=== PATIENT | female | born 1965 | race Hispanic/Latino ===

== ENCOUNTER 2018-01-06 10:17 | Emergency (ER) | payer BC ==
[2018-01-06 10:24] VITALS: BMI 30.2
[2018-01-06 10:37] VITALS: RESP 18
[2018-01-06] MEDS ORDERED: Sodium Chloride 0.9% 1,000 ML IV STA (10:54)
[2018-01-06] MEDS ORDERED: Iohexol 350 MG/100 ML VIAL ONE (11:08)
[2018-01-06 11:40] LABS: BASO # 0.04 K/mm3 (0.0-2.0); BASO % 0.8 % (0.0-3.0); EOS # 0.2 (0.0-0.7); EOS % 3.8 % (1.5-5.0); GRAN # 2.09 (1.4-6.5); GRAN % 44.3 % (50.0-68.0); HEMOGLOBIN 13.8 g/dL (12.0-16.0); LYMPH # 1.7 (1.2-3.4); LYMPH % 36.9 % (22.0-35.0); MEAN CELL VOLUME 84.6 fl (80.0-105.0); MEAN CORPUSCULAR HEMOGLOBIN 29.1 pg (25.0-35.0); MEAN CORPUSCULAR HGB CONC 34.4 g/dl (31.0-37.0); MEAN PLATELET VOLUME 9.7 fl (7.0-11.0); MONO # 0.7 (0.1-0.6); MONO % 14.2 % (1.0-6.0); RBC 4.74 10^6/uL (3.5-6.1); URINE BILIRUBIN NEGATIVE (NEGATIVE); URINE BLOOD NEGATIVE (NEGATIVE); URINE GLUCOSE (UA) NEGATIVE (NEGATIVE); URINE LEUKOCYTE ESTERASE TRACE Leu/uL (NEGATIVE); URINE PROTEIN NEGATIVE mg/dL (<30 mg/dL); URINE UROBILINOGEN 0.2 E.U./dL (<1 E.U./dL); WHITE BLOOD COUNT 4.7 10^3/ul (4.5-11.0)
[2018-01-06 11:44] LABS: ALB/GLOB RATIO 1.5 (1.1-1.8); ALBUMIN 4.5 g/dL (3.0-4.8); ALT/SGPT 21 U/L (7-56); AST/SGOT 27 U/L (14-36); BLOOD UREA NITROGEN 11 mg/dL (7-21); CALCIUM 9.3 mg/dL (8.4-10.5); GFR AFRICAN-AMERICAN > 60; GFR NON-AFRICAN AMERICAN > 60; LIPASE 259 U/L (23-300); URINE APPEARANCE CLEAR (CLEAR); URINE COLOR STRAW (YELLOW)
--- NOTE | 2018-01-06 12:13 | ED PDOC ---
Arrival/HPI - General Chief Complaint: Abdominal Pain Time Seen by Provider: 01/06/18 10:44 Historian: Patient - History of Present Illness Narrative History of Present Illness (Text): 01/06/18 13:21 52-year-old female presents today with left-sided abdominal pain. Patient states she's been having a fullness sensation a left side of the abdomen for the past 3 weeks. Patient states she was seen by her primary care physician and placed on Cipro patient states she was then seen by a GI specialist 5 days ago and was placed on Cipro and Flagyl. Patient states today the pain suddenly worsened. She denies fevers or chills. No chest pain or shortness of breath. She is complaining of nausea no vomiting or diarrhea. Patient states she has pain that radiates from the left side of the abdomen to the left flank. She denies dysuria or urinary frequency. No other complaints. Time/Duration: > week Symptom Onset: Gradual Symptom Course: Worsening Quality: Pressure, Cramping Severity Level: 7 Past Medical History - Provider Review Nursing Documentation Reviewed: Yes - Travel History Have you recently traveled outside [place] w/in the past 3 mons?: No - Infectious Disease Hx of Infectious Diseases: None - Gastrointestinal Hx Gastroesophageal Reflux: Yes - Psychiatric Hx Anxiety: Yes Hx Substance Use: No - Surgical History Hx Tonsillectomy: Yes Hx Tubal Ligation: Yes Other/Comment: cyst removal - Anesthesia Hx Anesthesia: Yes Hx Anesthesia Reactions: No Hx Malignant Hyperthermia: No Family/Social History - Physician Review Nursing Documentation Reviewed: Yes Family/Social History: Unknown Family HX Smoking Status: Never Smoked Hx Alcohol Use: Yes Frequency of alcohol use: Socially Hx Substance Use: No Allergies/Home Meds Allergies/Adverse Reactions: Allergies latex Allergy (Verified 01/06/18 10:24) ITCHING Home Medications: Home Meds Medication Instructions Recorded Confirmed Alprazolam [Xanax] 1 tab PO PRN PRN 01/06/18 01/06/18 Omeprazole Magnesium [Prilosec Otc] 40 mg PO DAILY 01/06/18 01/06/18 Review of Systems - Review of Systems Constitutional: absent: Fatigue, Fevers Respiratory: absent: SOB, Cough Cardiovascular: absent: Chest Pain, Palpitations Gastrointestinal: Abdominal Pain. absent: Constipation, Diarrhea, Nausea, Vomiting Genitourinary Female: absent: Dysuria, Frequency, Hematuria Musculoskeletal: Back Pain. absent: Arthralgias, Neck Pain Skin: absent: Rash, Pruritis Neurological: absent: Headache, Dizziness Psychiatric: absent: Anxiety, Depression Physical Exam Vital Signs Reviewed: Yes Vital Signs Temp Pulse Resp BP Pulse Ox 01/06/18 10:18 98.0 F 68 18 175/83 H 100 Temperature: Afebrile Blood Pressure: Hypertensive Pulse: Regular Respiratory Rate: Normal Appearance: Positive for: Well-Appearing, Non-Toxic, Comfortable Pain Distress: None Mental Status: Positive for: Alert and Oriented X 3 - Systems Exam Head: Present: Atraumatic Mouth: Present: Moist Mucous Membranes Neck: Present: Normal Range of Motion Respiratory/Chest: Present: Clear to Auscultation, Good Air Exchange. No: Respiratory Distress, Accessory Muscle Use Cardiovascular: Present: Regular Rate and Rhythm, Normal S1, S2. No: Murmurs, Muffled Abdomen: Present: Tenderness (+ left upper and lower abdominal tenderness), Normal Bowel Sounds. No: Distention, Peritoneal Signs, Rebound, Guarding Back: Present: Normal Inspection. No: CVA Tenderness, Midline Tenderness, Paraspinal Tenderness Upper Extremity: Present: Normal ROM Lower Extremity: Present: Normal ROM Neurological: Present: GCS=15, Speech Normal Skin: Present: Warm, Dry, Normal Color. No: Rashes Psychiatric: Present: Alert, Oriented x 3 Medical Decision Making ED Course and Treatment: 01/06/18 13:24 Patient is nontoxic well appearing with stable vital signs presenting with left sided abdominal pain CBC wnl CMP wnl Lipase wnl Urinalysis +trace leukocytes CAT scan:FINDINGS: LOWER THORAX: The lung bases are clear. No infiltrate effusion or basilar pneumothorax. Heart size normal. No significant pericardial effusion. Tiny hiatal hernia. LIVER: Liver exhibits normal size measuring approximately 14 cm in CC dimension. Mild diffuse fatty hepatic infiltration. No obvious hepatic mass collection or calcification. GALLBLADDER AND BILE DUCTS: Gallbladder physiologically distended. No evidence of intraluminal gallbladder calculi. PANCREAS: Pancreas appears slightly atrophic and fatty replaced. SPLEEN: Spleen is upper limits of normal in size. ADRENALS: No adrenal lesions. KIDNEYS AND URETERS: Kidneys demonstrate symmetric nephrograms. No evidence of nephrolithiasis or hydronephrosis. There is a small approximately 2.8 mm cyst lateral cortex mid pole right kidney BLADDER: Urinary bladder is incompletely distended which presumably in part accounts for thick-walled appearance however there is some minimal asymmetry of the wall thickness and slightly more prominent along the superior anterior border. Possibility of intrinsic/invasive wall lesion not excluded. Follow-up urologic consultation may be prudent. REPRODUCTIVE: Prominent appearing cervix. Consider followup pelvic ultrasound APPENDIX: Normal-appearing appendix BOWEL: Evaluation of the bowel is somewhat limited due to the lack of oral contrast material. The stomach is collapsed. Visualized loops of small bowel exhibit normal contour and caliber. No evidence of acute mechanical small bowel obstruction. Stool and air seen throughout the large bowel. No evidence of mural wall thickening. PERITONEUM: Unremarkable. No fluid collection. No free air. Small fat containing umbilical hernia. LYMPH NODES: Unremarkable. No enlarged lymph nodes. VASCULATURE: Unremarkable. No aortic aneurysm. BONES: Minor multilevel degenerative spondylosis of the lower thoracic and lumbar spine. OTHER FINDINGS: None. IMPRESSION: No evidence of nephrolithiasis or hydronephrosis. Kumar Bulky appearing cervix. Recommend followup pelvic ultrasound. Urinary bladder exhibits mild asymmetric wall thickening nonspecific. Correlation urinalysis however follow-up urologic consultation may be prudent for further evaluation to exclude intrinsic/ invasive wall lesion. Spleen is upper limits of normal in size. Mild fatty hepatic infiltration. 01/06/18 16:29 pt was seen and evaluated by dr. warner at [facility]; he reviewed CT results; will d/c patient home and change cipro to augmentin. he advised patient to continue flagyl. Discussed all results with patient in depth advised patient to d/c cipro and start augmentin but continue flagyl. pt was advised to return IMMEDIATELY if symptoms worsen,persist or if new symptoms develop. advised patient of need for f/u with [facility] regarding prominent cervix. advised f/u with urologist for asymmetric thickening of the bladder. Patient states her father had a history of bladder cancer. I advised the patient to follow-up with Dr. Elmore. pt with leukocytes in urine; pt has been on cipro; abx is changing to augmentin. will follow urine culture . Patient verbalizes understanding of discharge instructions and need for immediate followup. all aspects of this case were discussed the attending of record. Impression: Abdominal pain Motrin every 6 hours as needed for pain STOP cipro. Start augmentin twice daily x 10 days Continue flagyl as prescribed Increase fluids Follow up with primary care physician within the next 2 days Follow up with the GI doctor within the next 2 days. Follow up with the urologist Return immediately if symptoms worsen persist or if new symptoms develop: High fevers, increasing pain, vomiting, diarrhea or any other concerning symptoms develop Reassessment Condition: Re-examined, Improved - Lab Interpretations Lab Results: 01/06/18 11:20 01/06/18 11:20 Lab Results 01/06/18 11:20: WBC 4.7, RBC 4.74, Hgb 13.8, Hct 40.1, MCV 84.6, MCH 29.1, MCHC 34.4, RDW 13.0, Plt Count 243, MPV 9.7, Gran % 44.3 L, Lymph % (Auto) 36.9 H, [place] % (Auto) 14.2 H, Eos % (Auto) 3.8, Baso % (Auto) 0.8, Gran # 2.09, Lymph # (Auto) 1.7, [place] # (Auto) 0.7 H, Eos # (Auto) 0.2, Baso # (Auto) 0.04 01/06/18 11:20: Sodium 139, Potassium 4.0, Chloride 102, Carbon Dioxide 27, Anion Gap 15, BUN 11, Creatinine 0.8, Est GFR ( Amer) > 60, Est GFR (Non- Af Amer) > 60, Random Glucose 92, Calcium 9.3, Total Bilirubin 0.6, AST 27, ALT 21, Alkaline Phosphatase 44, Total Protein 7.4, Albumin 4.5, Globulin 3.0, Albumin/Globulin Ratio 1.5, Lipase 259 01/06/18 11:20: Urine Color Straw, Urine Appearance Clear, Urine pH 6.0, Ur Specific [place] <= 1.005, Urine Protein Negative, Urine Glucose (UA) Negative, Urine Ketones Negative, Urine Blood Negative, Urine Nitrate Negative, Urine Bilirubin Negative, Urine Urobilinogen 0.2, Ur Leukocyte Esterase Trace H, Urine RBC 0 - 2, Urine WBC 2 - 5, Ur Epithelial Cells 4 - 5, Urine Bacteria Few - RAD Interpretation Radiology Orders: 01/06/18 10:54 ABD & PELVIS IV CONTRAST ONLY [CT] Stat - Medication Orders Current Medication Orders: Discontinued Medications Sodium Chloride (Sodium Chloride 0.9%) 1,000 mls @ 999 mls/hr IV .Q1H1M STA Stop: 01/06/18 11:54 Last Admin: 01/06/18 11:05 Dose: 999 mls/hr eMAR Start Stop Document 01/06/18 11:05 EQ (Rec: 01/06/18 11:05 EQ [id number]) Intravenous Solution Start Date 01/06/18 Start Time 11:05 Ketorolac Tromethamine (Toradol) 30 mg IVP STAT STA Stop: 01/06/18 10:55 Last Admin: 01/06/18 11:06 Dose: 30 mg MAR Pain Assessment Document 01/06/18 11:06 EQ (Rec: 01/06/18 11:06 EQ [id number]) Pain Reassessment Is this a pain reassessment? No Sleep Is patient sleeping during reassessment? No IVP Administration Document 01/06/18 11:06 EQ (Rec: 01/06/18 11:06 EQ [id number]) Charges for Administration # of IVP Administrations 1 Disposition/Present on Arrival - Present on Arrival Any Indicators Present on Arrival: No History of DVT/PE: No History of Uncontrolled Diabetes: No Urinary Catheter: No History of Decub. Ulcer: No History Surgical Site Infection Following: None - Disposition Have Diagnosis and Disposition been Completed?: Yes Diagnosis: Abdominal pain Disposition: HOME/ ROUTINE Disposition Time: 16:40 Patient Plan: Discharge Patient Problems: Current Active Problems Problem Status Onset Abdominal pain Acute Condition: GOOD Discharge Instructions (ExitCare): Acute Abdomen (Belly Pain) Additional Instructions: Motrin every 6 hours as needed for pain STOP cipro. Start augmentin twice daily x 10 days Continue flagyl as prescribed Increase fluids Follow up with primary care physician within the next 2 days Follow up with the GI doctor within the next 2 days. Follow up with the urologist Return immediately if symptoms worsen persist or if new symptoms develop: High fevers, increasing pain, vomiting, diarrhea or any other concerning symptoms develop Prescriptions: Amoxicillin/Clavulanate [Augmentin 875 MG-125 MG] 1 tab PO BID #20 tab Ibuprofen [Motrin] 600 mg PO Q6H PRN #20 tab PRN Reason: pain/fever reduction Referrals: Domenica Morris MD [Staff Provider] - Follow up with primary Tyrese Warner MD [Medical Doctor] - Follow up with primary Jacobo Donis MD [Family Provider] - Follow up with primary Brendon Dewitt MD [Staff Provider] - Follow up with primary Meliton Elmore MD [Staff Provider] - Follow up with primary Forms: [employer] (Faroese), WORK NOTE
[2018-01-06 12:31] LABS: URINE BACTERIA FEW (NEG); URINE RBC 0 - 2 /hpf (0-2)
--- NOTE | 2018-01-06 14:19 | CT ---
PROCEDURE: CT scan abdomen pelvis 01/06/2018 HISTORY: Left-sided abdominal pain COMPARISON: No prior study available for comparison TECHNIQUE: Contiguous helical/transaxial images of the abdomen and pelvis following intravenous injection of approximately 100 cc Omnipaque 350 contrast material. Additional 2D sagittal and coronal reformats generated. This CT exam was performed using one or more of the following dose reduction techniques: Automated exposure control, adjustment of the mA and/or kV according to patient size, and/or use of iterative reconstruction technique. Radiation dose: Total exam DLP = 787.45 mGy-cm. FINDINGS: LOWER THORAX: The lung bases are clear. No infiltrate effusion or basilar pneumothorax. Heart size normal. No significant pericardial effusion. Tiny hiatal hernia. LIVER: Liver exhibits normal size measuring approximately 14 cm in CC dimension. Mild diffuse fatty hepatic infiltration. No obvious hepatic mass collection or calcification. GALLBLADDER AND BILE DUCTS: Gallbladder physiologically distended. No evidence of intraluminal gallbladder calculi. PANCREAS: Pancreas appears slightly atrophic and fatty replaced. SPLEEN: Spleen is upper limits of normal in size. ADRENALS: No adrenal lesions. KIDNEYS AND URETERS: Kidneys demonstrate symmetric nephrograms. No evidence of nephrolithiasis or hydronephrosis. There is a small approximately 2.8 mm cyst lateral cortex mid pole right kidney BLADDER: Urinary bladder is incompletely distended which presumably in part accounts for thick-walled appearance however there is some minimal asymmetry of the wall thickness and slightly more prominent along the superior anterior border. Possibility of intrinsic/invasive wall lesion not excluded. Follow-up urologic consultation may be prudent. REPRODUCTIVE: Prominent appearing cervix. Consider followup pelvic ultrasound APPENDIX: Normal-appearing appendix BOWEL: Evaluation of the bowel is somewhat limited due to the lack of oral contrast material. The stomach is collapsed. Visualized loops of small bowel exhibit normal contour and caliber. No evidence of acute mechanical small bowel obstruction. Stool and air seen throughout the large bowel. No evidence of mural wall thickening. PERITONEUM: Unremarkable. No fluid collection. No free air. Small fat containing umbilical hernia. LYMPH NODES: Unremarkable. No enlarged lymph nodes. VASCULATURE: Unremarkable. No aortic aneurysm. BONES: Minor multilevel degenerative spondylosis of the lower thoracic and lumbar spine. OTHER FINDINGS: None. IMPRESSION: No evidence of nephrolithiasis or hydronephrosis. Kumar Bulky appearing cervix. Recommend followup pelvic ultrasound. Urinary bladder exhibits mild asymmetric wall thickening nonspecific. Correlation urinalysis however follow-up urologic consultation may be prudent for further evaluation to exclude intrinsic/ invasive wall lesion. Spleen is upper limits of normal in size. Mild fatty hepatic infiltration.
[2018-01-06 17:09] VITALS: PULSE 64; TEMP 98.7; O2SAT 99
[2018-01-06 17:38] VITALS: BP 182/88
== END 2018-01-06 17:15 | disposition home or self-care (01) ==
LOC: ED 10:17
DX: R10.9 Unspecified abdominal pain (principal)
CPT/HCPCS: 74177; 80053; 81001; 83690; 85025; 87040; 87086; 96374; 99284; J1885; J7030; Q9967

== ENCOUNTER 2018-04-09 10:30 | Emergency (ER) | payer BC ==
[2018-04-09 10:30] VITALS: BMI 30.2
[2018-04-09 11:29] LABS: ALB/GLOB RATIO 1.3 (1.1-1.8); ALBUMIN 4.7 g/dL (3.0-4.8); ALT/SGPT 28 U/L (7-56); AMYLASE 77 U/L (35-125); AST/SGOT 34 U/L (14-36); BLOOD UREA NITROGEN 13 mg/dL (7-21); CALCIUM 9.3 mg/dL (8.4-10.5); GFR NON-AFRICAN AMERICAN > 60; LIPASE 154 U/L (23-300)
[2018-04-09 11:32] LABS: URINE BILIRUBIN NEGATIVE (NEGATIVE); URINE BLOOD LARGE (NEGATIVE); URINE GLUCOSE (UA) NEGATIVE (NEGATIVE); URINE LEUKOCYTE ESTERASE LARGE Leu/uL (NEGATIVE); URINE PROTEIN 100 mg/dL (<30 mg/dL); URINE UROBILINOGEN 0.2 E.U./dL (<1 E.U./dL)
[2018-04-09 11:33] LABS: BASO # 0.04 K/mm3 (0.0-2.0); BASO % 0.4 % (0.0-3.0); EOS # 0.3 (0.0-0.7); EOS % 3.4 % (1.5-5.0); GRAN # 6.46 (1.4-6.5); GRAN % 66.9 % (50.0-68.0); HEMOGLOBIN 13.8 g/dL (12.0-16.0); LYMPH # 1.7 (1.2-3.4); LYMPH % 17.5 % (22.0-35.0); MEAN CELL VOLUME 87.8 fl (80.0-105.0); MEAN CORPUSCULAR HEMOGLOBIN 29.6 pg (25.0-35.0); MEAN CORPUSCULAR HGB CONC 33.7 g/dl (31.0-37.0); MEAN PLATELET VOLUME 9.7 fl (7.0-11.0); MONO # 1.1 (0.1-0.6); MONO % 11.8 % (1.0-6.0); RBC 4.67 10^6/uL (3.5-6.1); RED CELL DISTRIBUTION WIDTH 13.3 % (11.5-14.5); WHITE BLOOD COUNT 9.7 10^3/ul (4.5-11.0)
[2018-04-09 11:37] LABS: INR 0.96; PARTIAL THROMBOPLASTIN TIME 27.4 Seconds (25.1-36.5)
[2018-04-09 11:39] LABS: TROPONIN I < 0.01 ng/mL
[2018-04-09 11:42] LABS: URINE APPEARANCE CLEAR (CLEAR); URINE COLOR YELLOW (YELLOW)
[2018-04-09] MEDS ORDERED: cefTRIAXone 1 gm 1 GM/100 ML BAG IVPB STA (12:02)
[2018-04-09 12:26] LABS: URINE BACTERIA MANY (NEG); URINE RBC TNTC /hpf (0-2); URINE WBC TNTC /hpf (0-6)
[2018-04-09 12:27] LABS: URINE AMORPHOUS SEDIMENT FEW
--- NOTE | 2018-04-09 12:37 | ED PDOC ---
Arrival/HPI - General Historian: Patient - History of Present Illness Narrative History of Present Illness (Text): 04/09/18 12:34 53yo female with history of anxiety and GERD who present with complaint of substernal chest heaviness, odynophagia, hematuria and dysuria x 2days. States the symptoms was like her GERD symptom, so she was taking Prilosec, that usually resolve her symptoms but it didn't. she denies fever, chills, SOB, diaphoresis, calf pain, LE edema, nausea, vomiting, dizziness, recent travel/surgery, abdominal pain, any other complaint. <Demetrius Quintanilla A - Last Filed: 04/09/18 15:39> <Luisito Kelley - Last Filed: 04/14/18 18:47> - General Chief Complaint: Chest Pain Time Seen by Provider: 04/09/18 10:39 Past Medical History - Provider Review Nursing Documentation Reviewed: Yes - Infectious Disease Hx of Infectious Diseases: None - Cardiac Hx Cardiac Disorders: Yes Hx Hypertension: Yes - Gastrointestinal Hx Gastroesophageal Reflux: Yes - Psychiatric Hx Anxiety: Yes Hx Substance Use: No - Surgical History Hx Tonsillectomy: Yes Hx Tubal Ligation: Yes Other/Comment: cyst removal - Anesthesia Hx Anesthesia: Yes Hx Anesthesia Reactions: No Hx Malignant Hyperthermia: No <Demetrius Quintanilla A - Last Filed: 04/09/18 15:39> Family/Social History - Physician Review Nursing Documentation Reviewed: Yes Family/Social History: Unknown Family HX Smoking Status: Former Smoker Hx Alcohol Use: Yes Frequency of alcohol use: Socially Hx Substance Use: No <Demetrius Quintanilla A - Last Filed: 04/09/18 15:39> Allergies/Home Meds <Demetrius Quintanilla A - Last Filed: 04/09/18 15:39> <Luisito Kelley - Last Filed: 04/14/18 18:47> Allergies/Adverse Reactions: Allergies latex Allergy (Verified 04/09/18 10:54) ITCHING Home Medications: Home Meds Medication Instructions Recorded Confirmed Alprazolam [Xanax] 1 tab PO PRN PRN 01/06/18 04/09/18 Omeprazole Magnesium [Prilosec Otc] 40 mg PO DAILY 01/06/18 04/09/18 Review of Systems - Physician Review All systems were reviewed & negative as marked: Yes - Review of Systems Constitutional: Normal Eyes: Normal ENT: Sore Throat Respiratory: Normal Cardiovascular: Chest Pain Gastrointestinal: Normal Genitourinary Female: Normal Musculoskeletal: Normal Skin: Normal Neurological: Normal Endocrine: Normal Hemo/Lymphatic: Normal Psychiatric: Normal <Diru,Happiness A - Last Filed: 04/09/18 15:39> Physical Exam Vital Signs Reviewed: Yes Vital Signs Temp Pulse Resp BP Pulse Ox 04/09/18 10:43 98.0 F 67 19 178/89 H 100 Temperature: Afebrile Blood Pressure: Normal Pulse: Regular Respiratory Rate: Normal Appearance: Positive for: Well-Appearing, Non-Toxic, Comfortable Pain Distress: None Mental Status: Positive for: Alert and Oriented X 3 - Systems Exam Head: Present: Atraumatic, Normocephalic Pupils: Present: PERRL Extroacular Muscles: Present: EOMI Conjunctiva: Present: Normal Mouth: Present: Moist Mucous Membranes Pharnyx: Present: Normal. No: ERYTHEMA, EXUDATE, TONSILS ENLARGED, Peritonsilar Swelling, Uvular Deviation, Muffled/Hoarse Voice, Strider Neck: Present: Normal Range of Motion Respiratory/Chest: Present: Clear to Auscultation, Good Air Exchange. No: Respiratory Distress, Accessory Muscle Use, Wheezes, Decreased Breath Sounds, Retracting, Rhonchi Cardiovascular: Present: Regular Rate and Rhythm, Normal S1, S2. No: Murmurs Abdomen: No: Tenderness, Distention, Peritoneal Signs Back: Present: Normal Inspection Upper Extremity: Present: Normal Inspection. No: Cyanosis, Edema Lower Extremity: Present: Normal Inspection. No: Edema Neurological: Present: GCS=15, CN II-XII Intact, Speech Normal Skin: Present: Warm, Dry, Normal Color. No: Rashes Psychiatric: Present: Alert, Oriented x 3, Normal Insight, Normal Concentration <Diru,Happiness A - Last Filed: 04/09/18 15:39> Vital Signs Temp Pulse Resp BP Pulse Ox 04/09/18 15:25 98 F 78 18 159/90 H 98 04/09/18 15:18 76 18 173/92 H 99 04/09/18 10:43 98.0 F 67 19 178/89 H 100 <Luisito Kelley - Last Filed: 04/14/18 18:47> Medical Decision Making ED Course and Treatment: 04/09/18 15:41 53yo female present with complaint of chest heaviness, sore throat, hematuria and dysuria x 2days. Pt's symptom similar to her pervious GERD symptoms, but not relieved with Prilosec. 04/09/18 15:54 Differential includes GERD Vs ACS VS Pleuritic chest pain Labs Card iso EKG CXR UA ASA, Pepcid, 1L NS First and second CE was wnl. Pt's pain resolved in ED with pepcid. She have UTI. Rocephin was given in ED. All result was DW the pt. With exception of her age and gender, she have no cardiac risk . She was DC home to f/u with cardiology for outpt evaluation. - Lab Interpretations Lab Results: 04/09/18 10:40 04/09/18 10:40 Lab Results 04/09/18 10:40: Sodium 141, Potassium 4.3, Chloride 103, Carbon Dioxide 29, Anion Gap 13, BUN 13, Creatinine 0.8, Est GFR ( Amer) > 60, Est GFR (Non- Af Amer) > 60, Random Glucose 91, Calcium 9.3, Total Bilirubin 0.6, AST 34, ALT 28, Alkaline Phosphatase 68, Lactate Dehydrogenase 489, Total Creatine Kinase 65, Troponin I < 0.01, Total Protein 8.3, Albumin 4.7, Globulin 3.7, Albumin/Globulin Ratio 1.3, Amylase 77, Lipase 154 04/09/18 10:40: Urine Color Yellow, Urine Appearance Clear, Urine pH 6.0, Ur Specific [place] 1.025, Urine Protein 100 H, Urine Glucose (UA) Negative, Urine Ketones 15 H, Urine Blood Large H, Urine Nitrate Positive H, Urine Bilirubin Negative, Urine Urobilinogen 0.2, Ur Leukocyte Esterase Large H, Urine RBC Tntc, Urine WBC Tntc, Ur Epithelial Cells 6 - 8, Amorphous Sediment Few, Urine B acteria Many, Urine Other Uyeast 04/09/18 10:40: PT 11.0, INR 0.96, APTT 27.4 04/09/18 10:40: WBC 9.7 D, RBC 4.67, Hgb 13.8, Hct 41.0, MCV 87.8 D, MCH 29.6, MCHC 33.7, RDW 13.3, Plt Count 263, MPV 9.7, Gran % 66.9, Lymph % (Auto) 17.5 L, [place] % (Auto) 11.8 H, Eos % (Auto) 3.4, Baso % (Auto) 0.4, Gran # 6.46, Lymph # (Auto) 1.7, [place] # (Auto) 1.1 H, Eos # (Auto) 0.3, Baso # (Auto) 0.04 - Medication Orders Current Medication Orders: Discontinued Medications Famotidine (Pepcid) 20 mg IVP STAT STA Stop: 04/09/18 10:41 Last Admin: 04/09/18 11:05 Dose: 20 mg IVP Administration Document 04/09/18 11:05 [facility] (Rec: 04/09/18 11:05 [facility] [id number]) Charges for Administration # of IVP Administrations 1 Ceftriaxone Sodium (Rocephin 1 Gram Ivpb) 1 gm in 100 mls @ 200 mls/hr IVPB STAT STA; Protocol Stop: 04/09/18 12:31 <Demetrius Quintanilla - Last Filed: 04/09/18 15:39> - Lab Interpretations Microbiology Results: Microbiology Results 04/09/18 11:00 Urine,Clean Catch Urine Culture - Final No Growth (<1,000 CFU/ML) Lab Results: 04/09/18 10:40 04/09/18 10:40 Lab Results 04/09/18 14:00: Lactate Dehydrogenase 483, Total Creatine Kinase 55, Troponin I < 0.01 04/09/18 10:40: Sodium 141, Potassium 4.3, Chloride 103, Carbon Dioxide 29, Anion Gap 13, BUN 13, Creatinine 0.8, Est GFR ( Amer) > 60, Est GFR (Non- Af Amer) > 60, Random Glucose 91, Calcium 9.3, Total Bilirubin 0.6, AST 34, ALT 28, Alkaline Phosphatase 68, Lactate Dehydrogenase 489, Total Creatine Kinase 65, Troponin I < 0.01, Total Protein 8.3, Albumin 4.7, Globulin 3.7, Albumin/Globulin Ratio 1.3, Amylase 77, Lipase 154 04/09/18 10:40: Urine Color Yellow, Urine Appearance Clear, Urine pH 6.0, Ur Specific [place] 1.025, Urine Protein 100 H, Urine Glucose (UA) Negative, Urine Ketones 15 H, Urine Blood Large H, Urine Nitrate Positive H, Urine Bilirubin Ne gative, Urine Urobilinogen 0.2, Ur Leukocyte Esterase Large H, Urine RBC Tntc, Urine WBC Tntc, Ur Epithelial Cells 6 - 8, Amorphous Sediment Few, Urine Bacteria Many, Urine Other Uyeast 04/09/18 10:40: PT 11.0, INR 0.96, APTT 27.4 04/09/18 10:40: WBC 9.7 D, RBC 4.67, Hgb 13.8, Hct 41.0, MCV 87.8 D, MCH 29.6, MCHC 33.7, RDW 13.3, Plt Count 263, MPV 9.7, Gran % 66.9, Lymph % (Auto) 17.5 L, [place] % (Auto) 11.8 H, Eos % (Auto) 3.4, Baso % (Auto) 0.4, Gran # 6.46, Lymph # (Auto) 1.7, [place] # (Auto) 1.1 H, Eos # (Auto) 0.3, Baso # (Auto) 0.04 - Medication Orders Current Medication Orders: Discontinued Medications Aspirin (Aspirin) 325 mg PO STAT STA Stop: 04/09/18 14:47 Last Admin: 04/09/18 15:12 Dose: 325 mg Famotidine (Pepcid) 20 mg IVP STAT STA Stop: 04/09/18 10:41 Last Admin: 04/09/18 11:05 Dose: 20 mg IVP Administration Document 04/09/18 11:05 [facility] (Rec: 04/09/18 11:05 [facility] [id number]) Charges for Administration # of IVP Administrations 1 Ceftriaxone Sodium (Rocephin 1 Gram Ivpb) 1 gm in 100 mls @ 200 mls/hr IVPB STAT STA; Protocol Stop: 04/09/18 12:31 Last Admin: 04/09/18 12:45 Dose: 200 mls/hr eMAR Start Stop Document 04/09/18 12:45 [facility] (Rec: 04/09/18 12:46 [facility] [id number]) Intravenous Solution Start Date 04/09/18 Start Time 12:46 End Date 04/09/18 End time 13:16 Total Infusion Time 30 <Luisito Kelley - Last Filed: 04/14/18 18:47> - 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 <Luisito Kelley - Last Filed: 04/14/18 18:47> Disposition/Present on Arrival - Present on Arrival Any Indicators Present on Arrival: No History of DVT/PE: No History of Uncontrolled Diabetes: No Urinary Catheter: No History of Decub. Ulcer: No History Surgical Site Infection Following: None - Disposition Have Diagnosis and Disposition been Completed?: Yes Disposition Time: 15:00 Patient Plan: Discharge <Demetrius Quintanilla - Last Filed: 04/09/18 15:39> <Luisito Kelley - Last Filed: 04/14/18 18:47> - Disposition Diagnosis: Chest pain, UTI (urinary tract infection) Disposition: HOME/ ROUTINE Condition: STABLE Discharge Instructions (ExitCare): Urinary Tract Infections in Adults, Chest Pain (DC), Chest Pain (ED) Additional Instructions: Follow up with your Doctor/[employer]auty [employer] Instructor Drink plenty of fluid and take cranberry supplement Return to ED for any new or worsening symptoms Prescriptions: Cephalexin [cephalexin] 500 mg PO TID #21 cap Referrals: Kyrie Joseph MD [Staff Provider] - Follow up with primary Forms: [employer] ([place])
[2018-04-09 14:34] LABS: TROPONIN I < 0.01 ng/mL
[2018-04-09 15:19] VITALS: RESP 18
[2018-04-09 15:44] VITALS: BP 159/90; PULSE 78; TEMP 98; O2SAT 98
--- NOTE | 2018-04-09 17:52 | CARD ---
APPROVED REPORT Date of service: 04/09/2018 EKG Measurement Heart [id number] <Conclusion> Sinus rhythm with premature atrial complexes Otherwise normal ECG
== END 2018-04-09 15:30 | disposition home or self-care (01) ==
LOC: ED 10:30
DX: R07.9 Chest pain, unspecified (principal); N39.0 Urinary tract infection, site not specified; I10 Essential (primary) hypertension; K21.9 Gastro-esophageal reflux disease without esophagitis; F41.9 Anxiety disorder, unspecified; Z87.891 Personal history of nicotine dependence
CPT/HCPCS: 80053; 81001; 82150; 82550; 83615; 83690; 84484; 85025; 85610; 85730; 87086; 93005; 96365; 96375; 99284; J0696

== ENCOUNTER 2018-08-12 21:41 | Inpatient (IN) | payer BC ==
[2018-08-12 21:56] VITALS: BMI 31.1
[2018-08-12] MEDS ORDERED: TDAP Vaccine 0.5 mL Syr IM ONE (21:58)
[2018-08-12] MEDS ORDERED: Bacitracin 500 Units/gm Oint Foilpak UD TOP ONE (22:00)
--- NOTE | 2018-08-12 22:32 | ED PDOC ---
Arrival/HPI - General Chief Complaint: Trauma Time Seen by Provider: 08/12/18 21:42 Historian: Patient, Family - History of Present Illness Narrative History of Present Illness (Text): 08/12/18 22:36 María Elena Nunez is a 53 year old female, whose past medical history includes GERD and anxiety, who presents to the Emergency department brought in by EMS accompanied by son status post fall 30 minutes prior to arrival. Patient fell down approximately 10-12 stairs. Fall was unwitnessed, patient with unknown loss of consciousness. Patient was unable to ambulate after the fall. Patient states she was out drinking alcohol with friends tonight and came home to where her son lives and tripped, falling down the stairs. Patient complaining of left knee, mid-back pain, and headache. Patient also sustained a laceration to her post erior scalp. Patient is unable to recall her last TDAP. (+) ETOH on breath. Arrived to ER A&Ox3, moving all extremities. Patient denies any vision changes, dizziness, neck pain, bowel/bladder incontinence, saddle anesthesia, numbness/weakness/paresthesias, nausea, vomiting, chest pain, shortness of breath, or any other complaints. Time/Duration: 1/2 hour Symptom Onset: Gradual Symptom Course: Unchanged Context: Home Past Medical History - Provider Review Nursing Documentation Reviewed: Yes - Infectious Disease Hx of Infectious Diseases: None - Reproductive Menopause: Yes Currently : Unknown - Cardiac Hx Cardiac Disorders: Yes Hx Hypertension: Yes - Musculoskeletal/Rheumatological Hx Musculoskeletal Disorders: Yes Hx Falls: Yes - Gastrointestinal Hx Gastroesophageal Reflux: Yes - Psychiatric Hx Anxiety: Yes Hx Substance Use: No - Surgical History Hx Tonsillectomy: Yes Hx Tubal Ligation: Yes Other/Comment: cyst removal - Anesthesia Hx Anesthesia: Yes Hx Anesthesia Reactions: No Hx Malignant Hyperthermia: No Family/Social History - Physician Review Nursing Documentation Reviewed: Yes Family/Social History: Unknown Family HX Smoking Status: Former Smoker Hx Alcohol Use: Yes Frequency of alcohol use: Few days per week Hx Substance Use: No Allergies/Home Meds Allergies/Adverse Reactions: Allergies latex Allergy (Verified 04/09/18 10:54) ITCHING Home Medications: Home Meds Medication Instructions Recorded Confirmed Unobtainable 08/13/18 08/13/18 Review of Systems - Physician Review All systems were reviewed & negative as marked: Yes - Review of Systems Constitutional: absent: Fevers Eyes: absent: Vision Changes ENT: absent: Sore Throat, Sinus Congestion Respiratory: absent: SOB, Cough Cardiovascular: absent: Chest Pain, Palpitations, Syncope Gastrointestinal: absent: Abdominal Pain, Stool Changes, Diarrhea, Nausea, Vomiting, Appetite Changes Genitourinary Female: absent: Dysuria, Frequency Musculoskeletal: Arthralgias Skin: Laceration Neurological: Headache. absent: Dizziness, Speech Changes, Disequilibrium Psychiatric: Other (Intoxicated) Physical Exam Vital Signs Reviewed: Yes Temperature: Afebrile Blood Pressure: Normal Pulse: Regular Respiratory Rate: Normal Appearance: Positive for: Non-Toxic, Unkept, Uncomfortable Pain Distress: Mild Mental Status: Positive for: Alert and Oriented X 3, other (Intoxicated) Finger Stick Blood Glucose: 102 - Systems Exam Head: Present: Normocephalic, Swelling (left posterior scalp), Laceration (1.5cm laceration to left posterior scalp) Pupils: Present: PERRL Extroacular Muscles: Present: EOMI Conjunctiva: Present: Normal Ears: Present: Normal, NORMAL TM, Normal Canal. No: Erythema, TM Bulging, Fluid, TM Perf Mouth: Present: Moist Mucous Membranes Pharnyx: Present: Normal. No: ERYTHEMA, EXUDATE, TONSILS ENLARGED, Peritonsilar Swelling, Uvular Deviation, Muffled/Hoarse Voice, Strider, Soft Palate/Uvular Edema Nose (External): Present: Atraumatic Nose (Internal): Present: Normal Inspection Neck: Present: Normal Range of Motion. No: Meningeal Signs, MIDLINE TENDERNESS, Paraspinal Tenderness Respiratory/Chest: Present: Clear to Auscultation, Good Air Exchange. No: Re spiratory Distress, Accessory Muscle Use Cardiovascular: Present: Regular Rate and Rhythm, Normal S1, S2, Peripheal Pulses Present. No: Murmurs Abdomen: Present: Normal Bowel Sounds, Other (normal inspection, no bruising). No: Tenderness, Distention, Peritoneal Signs, Rebound, Guarding Back: Present: Normal Inspection, Midline Tenderness (Midline tenderness over T11 to L2). No: Other (no ecchymosis) Upper Extremity: Present: Normal Inspection, Normal ROM, NORMAL PULSES, Neurovascularly Intact, Capillary Refill < 2s. No: Cyanosis, Edema, Temperature Abnormalties, Deformity Lower Extremity: Present: NORMAL PULSES (2/2 pedal pulses bilaterally), Tenderness (Tenderness over left anterior knee), Swelling (Significant swelling to left anterior knee and left proximal anterior tibia), Deformity, Neurovascularly Intact (sensation and motor intact bilaterally), Capillary Refill < 2 s, Other (Ecchymotic bruising to left anterior knee and left proximal anterior tibia). No: CALF TENDERNESS, Normal ROM (decreased ROM of left knee secondary to pain; otherwise normal ROM, including distal to injury in left toes and ankle), Temperature Abnormalties Neurological: Present: GCS=15, CN II-XII Intact, Speech Normal, Motor Func Grossly Intact, Normal Sensory Function. No: Gait Normal (unable to assess) Skin: Present: Warm, Dry, Normal Color. No: Rashes Psychiatric: Present: Alert, Oriented x 3, Normal Affect, Normal Mood, Intoxicated Medical Decision Making ED Course and Treatment: 22:19 Initial Plan: * CT head * CT cervical spine * CT thoracic spine * CT lumbar spine * Bilateral Knee XR * tdap * wound irrigation and repair * Reassess and Disposition Wound irrigated thoroughly by oil well fishing tool technician. 0015 Knee XR shows fracture of left proximal fibula and tibia, possibly extending into tibial plateau. Pt continues to have distal ROM and pulses intact with sensation to left distal leg. Spoke with Dr. Donis who requests Dr. Aye shepherd for orthopedic consult. Results discussed with patient and son. Morphine ordered for pain. [address] Becker who reviewed diagnostic imaging. Requests CT of left knee, NPO diet, and preop labs/cxr/ekg/type and screen. Pt is to be scheduled for external fixation in OR tomorrow morning. Patient placed in left knee immobilizer by oil well fishing tool technician. Pending CT results of head and spine. 0115 Scalp laceration repaired with 3 zuleyka using sterile technique. Hemostasis achieved. Patient tolerated well. Advised patient and son that zuleyka will have to be removed in 1 week. Patient and son verbalized understanding. CT imaging of head and spine negative for acute fracture or dislocation and show no intracranial abnormality. 0120 Patient accepted for admission to Dr. Donis's service on med/surg floor. Resting comfortably in stretcher with stable vital signs at this time. NPO will be maintained for OR in the morning. Labwork reviewed. Leukocytosis, possible stress reaction; alcohol level 239; otherwise unremarkable CT lower extremity shows comminuted displaced tibia and fibula fractures with involvement of tibial plateau, associated hemarthrosis. No signs of compartment syndrome at this time. No paresthesias, patient able to move left ankle and toes, pulses intact distally with good cap refill and color to distal extremity. - Lab Interpretations Lab Results: 08/13/18 00:25 08/13/18 00:25 Lab Results 08/13/18 00:25: Alcohol, Quantitative 239 H 08/13/18 00:25: Sodium 142, Potassium 4.1, Chloride 108 H, Carbon Dioxide 21, Anion Gap 17, BUN 13, Creatinine 0.8, Est GFR ( Amer) > 60, Est GFR (Non- Af Amer) > 60, Random Glucose 107, Calcium 9.2, Total Bilirubin 0.4, AST 33, ALT 20, Alkaline Phosphatase 66, Total Protein 8.3, Albumin 4.8, Globulin 3.5, Albumin/Globulin Ratio 1.4 08/13/18 00:25: PT 10.5, INR 0.95, APTT 29.4 08/13/18 00:25: WBC 15.6 H, RBC 4.90, Hgb 14.4, Hct 43.0, MCV 87.8, MCH 29.4, MCHC 33.5, RDW 13.0, Plt Count 300, MPV 9.5, Neut % (Auto) 82.6 H, Lymph % (Auto) 8.9 L, Alger % (Auto) 7.8 H, Eos % (Auto) 0.5 L, Baso % (Auto) 0.2, Lymph # (Auto) 1.4, Alger # (Auto) 1.2 H, Eos # (Auto) 0.1, Baso # (Auto) 0.03, Absolute Neuts (auto) 12.90 H 08/12/18 21:52: POC Glucose (mg/dL) 102 I have reviewed the lab results: Yes - RAD Interpretation Narrative RAD Interpretations (Text): CT Head: BRAIN No evidence for acute intracranial hemorrhage. No midline shift or mass effect is seen. VENTRICLES: No hydrocephalus. ORBITS: The orbits are unremarkable. SINUSES AND MASTOIDS: There is mucosal thickening of both maxillary sinuses and there is a mucous retention cyst or polyp within the right maxillary sinus. BONES: No evidence for displaced calvarial fracture. SOFT TISSUES: There is mild left parietal scalp hematoma. MISCELLANEOUS: No evidence for acute territorial infarction. Mild motion artifact near the skull base slightly limits evaluation. IMPRESSION: 1. There is mild left parietal scalp hematoma. 2. No evidence for acute territorial infarction. 3. No evidence for acute intracranial hemorrhage. 4. No midline shift or mass effect is seen. 5. Mild motion artifact near the skull base slightly limits evaluation. 6. No evidence for displaced calvarial fracture. 7. There is mucosal thickening of both maxillary sinuses and there is a mucous retention cyst or polyp within the right maxillary sinus. Electronically signed on Aug 13, 2018 12:00:54 AM EST by: Sea Rush M.D., LOUIE Certified By ABR & CBCCT Fellowship Trained MRI and CT Specialist CT Cervical Spine: ALIGNMENT: There is mild straightening of cervical lordosis. No significant cervical scoliosis. DEGENERATIVE CHANGES: The C1-2 articulation appears intact. SOFT TISSUES: No focal prevertebral soft tissue swelling. BONES: No evidence for acute fracture or subluxation in the cervical spine. IMPRESSION: 1. No evidence for acute fracture or subluxation in the cervical spine. 2. No focal prevertebral soft tissue swelling. 3. There is mild straightening of cervical lordosis. 4. No significant cervical scoliosis. 5. The C1-2 articulation appears intact. Electronically signed on Aug 13, 2018 12:01:04 AM EST by: Sea Rush M.D., LOUIE Certified By ABR & CBCCT Fellowship Trained MRI and CT Specialist CT Thoracic Spine: BONES: There is a subcentimeter radiodensity within the posterior left 5th rib measuring approximately 5 mm on series 3, image 34. This may be a benign lesion such as a bone island although a small sclerotic lesion cannot be excluded. However, this is too small to definitively characterize. Please correlate clinically and if indicated further evaluation could be obtained with interval followup in perhaps 6 to 12 months. No evidence for acute fractures or subluxation in the thoracic spine. No evidence for displaced rib fractures. There is diffuse osteopenia. ALIGNMENT: There is somewhat exaggerated thoracic kyphosis. DEGENERATIVE CHANGES: There are mild multilevel degenerative changes in the thoracic spine. SOFT TISSUES: The soft tissues are unremarkable. MISCELLANEOUS: The visualized lungs are clear aside from mild scattered linear scarring and mild atelectasis in the lower lung zones. IMPRESSION: 1. There are mild multilevel degenerative changes in the thoracic spine. 2. There is a subcentimeter radiodensity within the posterior left 5th rib measuring approximately 5 mm on series 3, image 34. This may be a benign lesion such as a bone island although a small sclerotic lesion cannot be excluded. Ho wever, this is too small to definitively characterize. Please correlate clinically and if indicated further evaluation could be obtained with interval followup in perhaps 6 to 12 months. 3. No evidence for acute fractures or subluxations in the thoracic spine. 4. No evidence for displaced rib fractures. 5. The visualized lungs are clear aside from mild scattered linear scarring and mild atelectasis in the lower lung zones. 6. There is diffuse osteopenia. 7. There is somewhat exaggerated thoracic kyphosis. Electronically signed on Aug 13, 2018 12:07:09 AM EST by: Sea Rush M.D., LOUIE Certified By ABR & CBCCT Fellowship Trained MRI and CT Specialist CT Lumbar Spine: ALIGNMENT: Bony alignment is anatomic. DISCS/DEGENERATIVE CHANGES: T12/L1: No significant central canal or neural foraminal stenosis. L1/L2: No significant central canal or neural foraminal stenosis. L2/L3: No significant central canal or neural foraminal stenosis. L3/4: No significant central canal or neural foraminal stenosis. There are diffuse disc bulges at L4-L5 and L5-S1. Lesser disc bulges are present at the remaining lumbar levels. If indicated, this could be further evaluated with lumbar spine MRI. L5/S1: No significant central canal or neural foraminal stenosis. BONES: Vrio-pr-dsskgafx multilevel degenerative changes in the lumbar spine. No evidence for acute fracture or subluxation of visualize lumbosacral spine. No evidence for high-grade central canal stenosis. There is diffuse osteopenia. The vertebral body height are preserved. There is mild grade I anterolisthesis of L4 on L5, most probably degenerative. SOFT TISSUES: The soft tissues are unremarkable. MISCELLANEOUS: No abnormal contrast enhancement. IMPRESSION: 1. [id number] multilevel degenerative changes in the lumbar spine. 2. No evidence for acute fracture or subluxation of visualized lumbosacral spine. No evidence for high-grade central canal stenosis. 3. There is diffuse osteopenia. 4. The vertebral body heights are preserved. 5. There is mild grade I anterolisthesis of L4 on L5, most probably degenerative. 6. There are diffuse disc bulges at L4-L5 and L5-S1. Lesser disc bulges are present at the remaining lumbar levels. If indicated, this could be further evaluated with lumbar spine MRI Electronically signed on Aug 13, 2018 12:07:31 AM EST by: Sea Rush M.D., LOUIE Certified By ABR & CBCCT Fellowship Trained MRI and CT Specialist CT Left Lower Extremity: Mild osteopenia. Acute comminuted displaced fractures of the proximal tibial metadiaphyseal junction extending to the medial and lateral tibial plateaus. Associated moderate hemarthrosis. Acute displaced comminuted fracture of the fibular head and neck without diastasis of the proximal tibia/fibular syndesmosis. Soft tissue edema and swelling. There are changes of degenerative joint disease. Impression: Acute fractures of the proximal tibia and fibula. Electronically signed on Aug 13, 2018 2:37:25 AM EST by: Maricarmen Grady M.D., Certified by ABR, MSK, Neuroradiology Radiology Orders: 08/12/18 21:54 CERVICAL SPINE W/O CONTRAST [CT] Stat HEAD W/O CONTRAST [CT] Stat 08/12/18 21:57 LUMBAR SPINE W/O CONTRAST [CT] Stat THORACIC SPINE W/O CONT [CT] Stat 08/12/18 21:58 KNEES BILATERAL [RAD] Stat Chief Business Development Officer: Radiologist - EKG Interpretation EKG Interpretation (Text): Rate 90; NSR; Normal Intervals; No STEMI or other signs of acute ischemia Interpreted by ED Physician: Yes Type: 12 lead EKG - Medication Orders Current Medication Orders: Discontinued Medications Bacitracin (Bacitracin) 1 ea TOP ONCE ONE Stop: 08/12/18 22:01 Tetanus/Reduced Diphtheria/Acell Pertussis (Boostrix Vaccine Inj) 0.5 ml IM .ONCE ONE Stop: 08/12/18 21:59 Procedure: Wound Repair - Time Performed Time Performed: 00:45 - Time Out Time Out: Side verified, Site verified, Patient ID confirmed, Sterile procedures obs. - Consent Obtained Consent obtained: Verbal - Performed by Performed by: Mid-level Provider - Indications Indication(s):: Laceration - Location Location:: Left, Posterior, Scalp Shape:: Linear Dimensions Length cm: 1.5cm Depth:: Epidermis - Anesthetic Technique Anesthetic Technique: Intravenous pain meds - Debris Debris:: None - Irrigated Irrigated with ml of normal saline: 500 - Wound repair method Sutures:: # (3 ZULEYKA) - Complications Complications: None - Patient tolerated procedure Patient Tolerated Procedure:: Well - Scribe Statement The provider has reviewed the documentation as recorded by the Scribe Erica Chatman Provider Scribe Attestation: All medical record entries made by the Scribe were at my direction and personally dictated by me. I have reviewed the chart and agree that the record accurately reflects my personal performance of the history, physical exam, medical decision making, and the department course for this patient. I have also personally directed, reviewed, and agree with the discharge instructions and disposition. Disposition/Present on Arrival - Present on Arrival Any Indicators Present on Arrival: No History of DVT/PE: No History of Uncontrolled Diabetes: No Urinary Catheter: No History of Decub. Ulcer: No History Surgical Site Infection Following: None - Disposition Have Diagnosis and Disposition been Completed?: Yes Diagnosis: Tibial plateau fracture, left, Fibula fracture, Leukocytosis, Scalp laceration, Closed head injury, Fall, Alcohol intoxication Disposition: HOSPITALIZED Disposition Time: 12:55 Patient Plan: Admission Condition: STABLE
[2018-08-13] MEDS ORDERED: Morphine 2 mg/ml ISec IVP STA (00:21)
[2018-08-13 00:35] LABS: BASO # 0.03 K/mm3 (0.0-2.0); BASO % 0.2 % (0.0-3.0); EOS # 0.1 (0.0-0.7); EOS % 0.5 % (1.5-5.0); HEMOGLOBIN 14.4 g/dL (12.0-16.0); LYMPH # 1.4 (1.2-3.4); LYMPH % 8.9 % (22.0-35.0); MEAN CELL VOLUME 87.8 fl (80.0-105.0); MEAN CORPUSCULAR HEMOGLOBIN 29.4 pg (25.0-35.0); MEAN CORPUSCULAR HGB CONC 33.5 g/dl (31.0-37.0); MEAN PLATELET VOLUME 9.5 fl (7.0-11.0); MONO # 1.2 (0.1-0.6); MONO % 7.8 % (1.0-6.0); RBC 4.9 10^6/uL (3.5-6.1); WHITE BLOOD COUNT 15.6 10^3/uL (4.5-11.0)
[2018-08-13 00:44] LABS: INR 0.95; PARTIAL THROMBOPLASTIN TIME 29.4 Seconds (26.9-38.3); PROTHROMBIN TIME 10.5 SECONDS (9.4-12.5)
[2018-08-13 00:48] LABS: ALB/GLOB RATIO 1.4 (1.1-1.8); ALBUMIN 4.8 g/dL (3.0-4.8); ALT/SGPT 20 U/L (7-56); AST/SGOT 33 U/L (14-36); BLOOD UREA NITROGEN 13 mg/dL (7-21); CALCIUM 9.2 mg/dL (8.4-10.5); GFR NON-AFRICAN AMERICAN > 60
[2018-08-13] MEDS ORDERED: Sodium Chloride 0.9% 1,000 ML IV STA (01:13)
[2018-08-13] MEDS ORDERED: Morphine 2 mg/ml ISec IVP ONE (03:53)
[2018-08-13] MEDS ORDERED: Morphine 2 mg/ml ISec IVP PRN (07:11)
--- NOTE | 2018-08-13 08:39 | CT ---
Date of service: 08/12/2018 PROCEDURE: CT HEAD WITHOUT CONTRAST. HISTORY: ETOH, fall COMPARISON: None available. TECHNIQUE: Axial computed tomography images were obtained through the head/brain without intravenous contrast. Radiation dose: Total exam DLP = 898.6 mGy-cm. This CT exam was performed using one or more of the following dose reduction techniques: Automated exposure control, adjustment of the mA and/or kV according to patient size, and/or use of iterative reconstruction technique. FINDINGS: HEMORRHAGE: No intracranial hemorrhage. BRAIN: Hanson-white matter differentiation is preserved. There is no mass, mass effect or abnormal extra-axial fluid collection. There is no territorial infarction. The midline sagittal structures are normal. VENTRICLES: The ventricles are normal in size, shape and configuration. CALVARIUM: There is no calvarial fracture. Small left parietal scalp hematoma. PARANASAL SINUSES: There is mild polypoid mucosal thickening in the maxillary sinuses and a retention cyst/polyp in the right maxillary sinus. The remaining included paranasal sinuses are clear. MASTOID AIR CELLS: Predominantly clear. OTHER FINDINGS: None. IMPRESSION: No acute intracranial abnormality. Small left parietal scalp hematoma. Chronic maxillary sinusitis, worse on the right. A preliminary report was provided by [facility].
--- NOTE | 2018-08-13 09:36 | CT ---
Date of service: 08/12/2018 PROCEDURE: CT Cervical Spine without contrast HISTORY: ETOH, fall COMPARISON: None available. TECHNIQUE: Axial computed tomography images were obtained of the cervical spine without the use of intravenous contrast. Coronal and sagittal reformatted images were created and reviewed. Radiation dose: Total exam DLP = 485.02 mGy-cm. This CT exam was performed using one or more of the following dose reduction techniques: Automated exposure control, adjustment of the mA and/or kV according to patient size, and/or use of iterative reconstruction technique. FINDINGS: VERTEBRAE: There is normal alignment of the cervical vertebral bodies. There is straightening of the cervical spine with loss of normal cervical lordosis. Vertebral height is normal. Bone mineralization is normal. There is no acute fracture or traumatic anterior listhesis. The craniocervical junction is normal. The atlantoaxial joint normal. DISCS/SPINAL CANAL/NEURAL FORAMINA: No significant central canal or neural foraminal stenosis. Discs heights are grossly preserved. PARASPINAL SOFT TISSUES: No prevertebral soft tissue thickening. The paraspinous soft tissues are normal. OTHER FINDINGS: No apical pneumothorax. IMPRESSION: No acute fracture or traumatic anterior listhesis. Straightening of the cervical spine may be positional or related to muscle spasm. A preliminary report was provided by [facility].
--- NOTE | 2018-08-13 09:48 | CT ---
Date of service: 08/12/2018 PROCEDURE: CT Thoracic Spine without contrast HISTORY: ETOH, fall COMPARISON: None available. TECHNIQUE: Axial computed tomography images were obtained of the thoracic spine without intravenous contrast. Coronal and sagittal reformatted images were created and reviewed. Radiation dose: Total exam DLP = 1107.17 mGy-cm. This CT exam was performed using one or more of the following dose reduction techniques: Automated exposure control, adjustment of the mA and/or kV according to patient size, and/or use of iterative reconstruction technique. FINDINGS: VERTEBRAE: There is normal alignment of the thoracic vertebral bodies. There is exaggerated thoracic kyphosis. There is diffuse bone demineralization. There is no acute fracture or bone destruction. DISCS/SPINAL CANAL/NEURAL FORAMINA: Within the limits of the CT technique, no large disc herniation seen. No central canal or neural foraminal stenosis.. PARASPINAL SOFT TISSUES: Paraspinous soft tissues are not. OTHER FINDINGS: The visualized lungs are clear. There is elevation of the right hemidiaphragm IMPRESSION: No acute fracture.
--- NOTE | 2018-08-13 09:49 | RAD ---
Date of service: 08/13/2018 HISTORY: preop COMPARISON: No prior. FINDINGS: LUNGS: No active pulmonary disease. PLEURA: No significant pleural effusion identified, no pneumothorax apparent. CARDIOVASCULAR: No aortic atherosclerotic calcification present. Normal cardiac size. No pulmonary vascular congestion. OSSEOUS STRUCTURES: No significant abnormalities. VISUALIZED UPPER ABDOMEN: Normal. OTHER FINDINGS: None. IMPRESSION: No active disease.
--- NOTE | 2018-08-13 09:54 | CT ---
Date of service: 08/12/2018 PROCEDURE: CT Lumbar Spine without contrast HISTORY: ETOH, fall COMPARISON: None available. TECHNIQUE: Axial computed tomography images were obtained of the lumbar spine without the use of intravenous contrast. Coronal and sagittal reformatted images were created and reviewed. Radiation dose: Total exam DLP = 1493.92 mGy-cm. This CT exam was performed using one or more of the following dose reduction techniques: Automated exposure control, adjustment of the mA and/or kV according to patient size, and/or use of iterative reconstruction technique. FINDINGS: VERTEBRAE: There is degenerative grade 1 anterior listhesis of L4 on L5. There is exaggerated lumbar lordosis. There is diffuse bone demineralization. There is no acute fracture. DISCS/SPINAL CANAL/NEURAL FORAMINA: L1-2: Unremarkable. L2-3: Unremarkable. L3-4: Diffuse posterior disc bulge with superimposed left foraminal disc protrusion in conjunction with mild facet arthropathy result in moderate left neural foraminal narrowing. No spinal canal stenosis L4-5: Diffuse posterior disc bulge in conjunction with mild ligamentum flavum infolding result in mild spinal canal stenosis. Moderate bilateral facet arthropathy contribute to severe neural foraminal narrowing. L5-S1: Diffuse posterior disc bulge and mild central spinal canal stenosis. No neural foraminal narrowing. PARASPINAL SOFT TISSUES: Paraspinous soft tissues are normal. OTHER FINDINGS: None. IMPRESSION: No acute fracture. Mild multilevel degenerative disc disease, worse at L4-5 with mild spinal canal stenosis and severe neural foraminal narrowing, as well as degenerative grade 1 anterior listhesis of L4 on L5. A preliminary report was provided by [facility].
--- NOTE | 2018-08-13 10:05 | CON ---
DATE: 08/13/2018 ORTHOPEDIC CONSULT HISTORY OF PRESENT ILLNESS: The patient is 53-year-old female slipped downstairs on the 08/12/2018 approximately 8 o'clock at night. She was admitted to ER. Workup include x-ray of her swollen left knee which shows a bicondylar transtibial partial fracture of her left tibial plateau and proximal tibia with moderate displacement of the median, lateral, and posterior and anterior portion of the tibia with minimal compression and there has been no vascular status. It is swollen and mildly ecchymotic. The plan to do a transarticular external fixator late morning or earlier afternoon when the OR opens, I could schedule it. In this, we will keep the leg mobile, allow the swelling to subside to stop the m otion at the fracturet. Once the swelling is down in 10 days to 2 weeks, we could perform open reduction and internal fixation with plates and screws. It is about 10 days to 2 weeks. I told her that it should be done on a trauma hospital and setting with equipment is always regularly available because it might be things that we do not have in this facility, but it could be done when the swelling goes down. It is nothing more we could do right now on external fixator and transarticular with 2 pins in the cement and 2 pins in the tibial of the left lower extremity and that she does have no signs of compartment syndrome which has no paraesthesia of the legs, toes and the pain is controllable with the analgesics. So, late morning or early afternoon, we will put a transarticular external fixator on her, mobilize her with crutches or walker or wheelchair and perform a ORIF when all the swelling is down in 10 days to 2 weeks hopefully at [facility] when we have all equipments. FINAL DIAGNOSIS: Bicondylar intra articuler and metaphyseal_tibia and tibial plateau fracture of left knee. Merrill Becker DO MTDMi
--- NOTE | 2018-08-13 10:08 | CARD ---
APPROVED REPORT Date of service: 08/13/2018 EKG Measurement Heart [id number] <Conclusion> Normal sinus rhythm Normal ECG
[2018-08-13] MEDS ORDERED: Bupivacaine 0.5% 50 ML IJ ONE ×2 (10:27→11:50)
--- NOTE | 2018-08-13 11:01 | RAD ---
Date of service: 08/12/2018 PROCEDURE: Radiographs of the left tibia and fibula. HISTORY: fall COMPARISON: None available. TECHNIQUE: Frontal and lateral views obtained. FINDINGS: BONES: There is an acute comminuted impacted intra articular fracture in the proximal tibia. There is an acute nondisplaced fracture in the proximal fibula. JOINT SPACES: Preserved. OTHER FINDINGS: None. IMPRESSION: Acute comminuted impacted intra-articular fracture in the proximal tibia. Acute nondisplaced fracture in the proximal fibula.
--- NOTE | 2018-08-13 11:06 | RAD ---
Date of service: 08/12/2018 PROCEDURE: Bilateral Knee Radiographs. HISTORY: ETOH, fall, knee pain L>R COMPARISON: None. FINDINGS: BONES: Right Knee: Normal. No fracture. Left Knee: Acute comminuted impacted intra-articular fracture in proximal tibia and acute nondisplaced fracture in proximal fibula. JOINTS: Right Knee: Mild degenerative osteoarthrosis. Left knee: Mild degenerative osteoarthrosis SOFT TISSUES: Right Knee: Normal. Left Knee: Soft tissue swelling in the proximal leg. JOINT EFFUSION: Right Knee: None. Left Knee: Small suprapatellar joint effusion. OTHER FINDINGS: None. IMPRESSION: Acute comminuted impacted intra-articular fracture in the proximal tibia and acute nondisplaced fracture in the proximal fibula. Small suprapatellar effusion in the left knee joint and soft tissue swelling in the proximal leg.
[2018-08-13] MEDS ORDERED: Propofol 10 mg/ml Inj (20 ML) ONE ×2 (11:07→11:45)
[2018-08-13] MEDS ORDERED: Midazolam 2 MG/2 ML VIAL ONE (11:07)
[2018-08-13] MEDS ORDERED: Lidocaine PF 2% (5 ml) Inj (For Cardiac Arrhy) ONE (11:08)
[2018-08-13] MEDS ORDERED: CeFAZolin 1 gm in NS 100ml IVPB ONE (11:36)
--- NOTE | 2018-08-13 12:44 | CT ---
Date of service: 08/13/2018 PROCEDURE: CT of the left knee without contrast HISTORY: proximal tibia and fibula fracture COMPARISON: TECHNIQUE: Radiation dose: Total exam DLP = 381.94 mGy-cm. This CT exam was performed using one or more of the following dose reduction techniques: Automated exposure control, adjustment of the mA and/or kV according to patient size, and/or use of iterative reconstruction technique. FINDINGS: There is a comminuted intra-articular fracture of the proximal tibia. Multiple fracture lines are seen. There is mild displacement and impaction. There is hemarthrosis. The report concurs with the preliminary [employer] report IMPRESSION: There is a comminuted intra-articular fracture of the proximal tibia. Multiple fracture lines are seen. There is mild displacement and impaction. There is hemarthrosis.
[2018-08-13] MEDS ORDERED: HYDROmorphone 0.5 mg/0.5 ml ISec IVP PRN (13:12)
[2018-08-13] MEDS ORDERED: Lactated Ringer's 1,000 ML IV SCH (13:15)
[2018-08-13] MEDS ORDERED: HYDROmorphone 0.5 mg/0.5 ml ISec ONE (13:43)
--- NOTE | 2018-08-13 14:45 | RAD ---
Date of service: 08/13/2018 PROCEDURE: Fluoroscopy up to 1 hr HISTORY: EXTERNAL FIXATION OF LEFT TIB- FIB FX. COMPARISON: TECHNIQUE: Fluoroscopy was provided in the operating room. Fluoro time 35.2 sec. Cumulative dose 1.28 mGy. 12 images were submitted FINDINGS: The study shows placement of an external fixation device IMPRESSION: As above
[2018-08-13] MEDS: Oxycodone/Acetaminophen 5/325 mg Tab PO PRN (15:30)
[2018-08-13] MEDS: HYDROmorphone 1 mg/ml ISec IVP PRN ×2 (17:51→23:08)
[2018-08-13 19:27] LABS: BASO # 0.02 K/mm3 (0.0-2.0); BASO % 0.2 % (0.0-3.0); EOS % 0.2 % (1.5-5.0); HEMOGLOBIN 11.2 g/dL (12.0-16.0); LYMPH # 1.4 (1.2-3.4); LYMPH % 14.2 % (22.0-35.0); MEAN CELL VOLUME 89.8 fl (80.0-105.0); MEAN CORPUSCULAR HEMOGLOBIN 29.2 pg (25.0-35.0); MEAN CORPUSCULAR HGB CONC 32.6 g/dl (31.0-37.0); MEAN PLATELET VOLUME 9.1 fl (7.0-11.0); MONO # 1.4 (0.1-0.6); MONO % 14.9 % (1.0-6.0); RBC 3.83 10^6/uL (3.5-6.1); RED CELL DISTRIBUTION WIDTH 13.4 % (11.5-14.5); WHITE BLOOD COUNT 9.7 10^3/uL (4.5-11.0)
--- NOTE | 2018-08-13 21:13 | OP ---
PROCEDURE DATE: 08/13/2018 PREOPERATIVE DIAGNOSES: Highly comminuted, mildly displaced fracture, proximal left tibia, intraarticular medially and laterally and at the metaphysis, so it is a type 4 tibial plateau fracture with extensive comminution of the medial and lateral plateaus and metaphysial fracture of medial to lateral. POSTOPERATIVE DIAGNOSES: Highly comminuted, mildly displaced fracture, proximal left tibia, intraarticular medially and laterally and at the metaphysis, so it is a type 4 tibial plateau fracture with extensive comminution of the medial and lateral plateaus and metaphysial fracture of medial to lateral. PROCEDURE: Temporizing transarticular external fixating using a Biomet external fixator from the midshaft of the femur to the midshaft of the tibia. ANESTHESIA: General endotracheal tube. DESCRIPTION OF PROCEDURE: Summary as follows: The patient was taken to the OR. Left lower extremity was prepped and draped in sterile fashion. No tourniquet was utilized. We marked out the landmarks putting 2 pins in the midshaft of the femur about 5 inches apart and the same thing to the tibia midshaft just to stay out of the way of the planned plating of the ORIF to be done when the swelling goes down of the tibia plateau fracture. She has no signs of compartment syndrome today, but she is swollen. Good neurovascular status and can move the foot and toes well. So, once she was prepped and draped, we put out the landmarks to put 2 half pins in the midshaft of the left femur and midshaft of the left tibia with the help of the x-ray. All 4 pins were in bicortical fashion coming out on the anterior portion more lateral on the femur and more medial on the tibia. Then, the fracture was reduced with ligamentotaxis to maintain length and alignment. Then, we put 1 bar to connect 2 pins proximally and distally and then connected that small short bar with the large bars to secure the fracture, so we immobilized the fracture and we kept the knee at about 10 degrees of flexion. Had good neurovascular status. All the pins were put in with stab wounds and no sutures were needed to finalize the stab wound incisions. She had 2 bars proximally that were 180 x 50 mm and 2 distally that were 150 x 50 mm. The patient had x-rays taken to confirm the improved reduction stability. The patient was taken to the recovery room in good condition. Plan is to do the surgery formal ORIF when the swelling goes down in about 10 days. Merrill Becker DO
[2018-08-14] MEDS: Oxycodone/Acetaminophen 5/325 mg Tab PO PRN ×3 (01:39→15:57)
[2018-08-14] MEDS: HYDROmorphone 1 mg/ml ISec IVP PRN ×5 (03:51→21:26)
[2018-08-14 07:36] LABS: ALB/GLOB RATIO 1.3 (1.1-1.8); ALBUMIN 3.8 g/dL (3.0-4.8); ALT/SGPT 22 U/L (7-56); AST/SGOT 62 U/L (14-36); BLOOD UREA NITROGEN 11 mg/dL (7-21); CALCIUM 8.3 mg/dL (8.4-10.5); GFR NON-AFRICAN AMERICAN > 60
--- NOTE | 2018-08-14 09:16 | PN ---
DATE: 08/14/2018 FOLLOWUP REPORT LOCATION: , bed 2. The patient underwent a transarticular external fixator of a tibial plateau fracture, left side. She feels much less pain today. We will instruct her on exercise to regain strength of the left leg and prepare for ORIF of the left tibial plateau fracture and all the swelling goes down and by elevating the leg, but she could get up out of bed with professional help using a recliner to get her lungs moving better and to get her to mobilize better. Hopefully, we will get her to go home in a couple of days, and I will plan for the surgery after the swelling goes down about a week or ten days, and I will follow her in the office to see how she is doing. Merrill Becker DO
--- NOTE | 2018-08-14 09:23 | HP ---
DATE OF EXAM: 08/14/2018 HISTORY OF PRESENT ILLNESS: The patient is a 53-year-old female who presents to the emergency room complaining of knee pain after falling down approximately 10 to 12 stairs. The patient was unable to ambulate after the fall. She had been out drinking with some friends, as per the patient this is a one-time she decided to drink alcohol. She is complaining of left knee pain, mid back pain and headache. She suffered a laceration to the posterior scalp. The patient was taken to the operating room by Dr. Becker and initial surgical procedure to stabilize a fractured tibial plateau and proximal fibula was performed. The patient is seen postoperatively in the hospital bed. ALLERGIES: SHE IS KNOWN TO BE ALLERGIC TO LATEX WHICH HAS CAUSED ITCHING IN THE PAST. PAST MEDICAL HISTORY: She is known to have a past medical history positive for gastroesophageal reflux disease and anxiety. She also has a history of hypertension, status post tubal ligation. FAMILY HISTORY: Text. SOCIAL HISTORY: She is a former smoker. Drinks alcohol socially. REVIEW OF SYSTEMS: Otherwise unremarkable. PHYSICAL EXAMINATION GENERAL: The patient is awake, alert and oriented, multiple family members are at bedside. External brace stabilizing the left lower extremity is in place. VITAL SIGNS: Blood pressure is 132/76, heart rate 106 and the patient is afebrile. HEAD, EYES, EARS, NOSE AND THROAT: Unremarkable. NECK: Supple with no lymphadenopathy. No goiter. LUNGS: Clear anteriorly and laterally. HEART: Regular. No murmurs are appreciated. EXTREMITIES: Free of cyanosis, clubbing or edema. External stabilizing brace on the left lower extremity is noted. NEUROLOGICAL: The patient is awake, alert and oriented with no focal neurological signs. LABORATORY DATA: Her admitting laboratory studies show the white blood cell count to be 15.6, hemoglobin and hematocrit are 14.4 and 43.0 respectively, platelet count is 300. Sodium is 142, potassium is 4.1, blood urea nitrogen is 13, creatinine 0.8. Alcohol level was elevated at 239. IMPRESSION AND PLAN: So, the patient underwent first procedure for surgical repair of the fracture of the tibial plateau and proximal fibula of the left lower extremity. Apparently, a second step procedure is scheduled for the morning. We will continue to follow the patient closely postprocedure. Merrill Donis MD MTDMi
[2018-08-15] MEDS: HYDROmorphone 1 mg/ml ISec IVP PRN ×5 (02:30→20:47)
[2018-08-15 09:18] LABS: BASO # 0.03 K/mm3 (0.0-2.0); BASO % 0.4 % (0.0-3.0); EOS # 0.3 (0.0-0.7); EOS % 3.2 % (1.5-5.0); LYMPH # 1.4 (1.2-3.4); LYMPH % 16.5 % (22.0-35.0); MEAN CELL VOLUME 89.1 fl (80.0-105.0); MEAN CORPUSCULAR HEMOGLOBIN 29.3 pg (25.0-35.0); MEAN CORPUSCULAR HGB CONC 32.8 g/dl (31.0-37.0); MEAN PLATELET VOLUME 9.6 fl (7.0-11.0); MONO # 1.1 (0.1-0.6); MONO % 12.9 % (1.0-6.0); RBC 3.76 10^6/uL (3.5-6.1); RED CELL DISTRIBUTION WIDTH 12.7 % (11.5-14.5); WHITE BLOOD COUNT 8.4 10^3/uL (4.5-11.0)
[2018-08-15] MEDS: cefTRIAXone 1 gm 1 GM/100 ML BAG IVPB SCH (13:20)
--- NOTE | 2018-08-15 14:26 | PN ---
DATE: 08/15/2018 LOCATION: Room 573, bed 2. SUBJECTIVE: The patient sustained a highly comminuted fracture of the left tibial plateau, medial, laterally, posterior and anteriorly, which was stabilized_with a transarticular external fixation on 08/13/2018 to hold the leg out to lenght as best as possible . this will control the pain by keeping the fx from moving.i plan to do the interna fixation surgery when the swelling subsides in about a week.. She had tremendous swelling but not compartment syndrome, so today I changed the dressing of the oozing blood that is dry right now, all the pin tracks are dry and put her in the fresh dressing and encouraged her to do quad set straight leg raising and physical therapy for up out of bed and ambulation. The patient displays timidness to her fracture, does not want to look at and does not want to touch her leg, but we have encouraged her to be part of the treatment by performing isometric exercising . volunteering to get up out of bed would help, so she should go to [facility], because she has too many flights of stairs to do at home, so we will plan on doing surgery in approximately a week from today and then she will stay at [facility], then go to the [facility] for surgery and be admitted there for a day or two and back to [facility] for rehabilitation. FINAL DIAGNOSIS: Highly comminuted displaced tibial plateau fracture of the left leg on this 55-year-old female. The patient tolerated the risks and benefits of surgery. Merrill Becker DO YESSENIA
[2018-08-16] MEDS: HYDROmorphone 1 mg/ml ISec IVP PRN ×6 (00:42→22:01)
[2018-08-16 08:36] LABS: ALB/GLOB RATIO 1.2 (1.1-1.8); ALBUMIN 3.7 g/dL (3.0-4.8); ALT/SGPT 20 U/L (7-56); AST/SGOT 35 U/L (14-36); BLOOD UREA NITROGEN 12 mg/dL (7-21); CALCIUM 8.7 mg/dL (8.4-10.5); GFR NON-AFRICAN AMERICAN > 60
[2018-08-16] MEDS: cefTRIAXone 1 gm 1 GM/100 ML BAG IVPB SCH (09:44)
[2018-08-17] MEDS: HYDROmorphone 1 mg/ml ISec IVP PRN ×5 (03:21→22:35)
[2018-08-17] MEDS: Pantoprazole 40 mg EC Tab PO SCH (06:06)
[2018-08-17] MEDS: cefTRIAXone 1 gm 1 GM/100 ML BAG IVPB SCH (09:12)
[2018-08-17] MEDS: Nystatin 100,000 Units/gm Topical Pow(15 gm) TOP SCH ×2 (13:02→18:10)
[2018-08-18] MEDS: HYDROmorphone 1 mg/ml ISec IVP PRN ×6 (02:42→23:44)
[2018-08-18] MEDS: Pantoprazole 40 mg EC Tab PO SCH (05:49)
--- NOTE | 2018-08-18 08:26 | PN ---
DATE: 08/16/2018 LOCATION: Room 566, bed 2. SUBJECTIVE: The patient suffered a highly comminuted displaced left tibial plateau fracture, was admitted on 08/13/2018 and had a transarticular external fixator applied next day stabilizing the fracture, so she could be mobilized and allow the swelling to subside. We will plan on doing this surgery the end of the weekend, about one more week on the Saturday. I am trying to get her ready to go to subacute rehab because she cannot go home with 20 stairs and she can go back to subacute rehab after the open reduction and internal fixation to put plates on the proximal tibia fracture on the left side. Right now, she has some urinary problems where she had to be re-catheterized for distention of the bladder. So, medical doctors are on that problem to see if we could rectify the urine issues to get her from using the Zee catheter for now. Merrill Becker DO
[2018-08-18] MEDS: cefTRIAXone 1 gm 1 GM/100 ML BAG IVPB SCH (10:57)
[2018-08-18] MEDS: Nystatin 100,000 Units/gm Topical Pow(15 gm) TOP SCH ×2 (11:00→18:30)
--- NOTE | 2018-08-18 11:01 | PN ---
DATE: 08/18/2018 LOCATION: In room 566, bed 3. SUBJECTIVE: She is a 53-year-old female, who fell down the stairs on 08/13/2018 has a severe proximal left tibia fracture and tibial plateau fracture with comminution. She was placed in a transarticular frame at the time of admission, now she is getting prepared for formal ORIF at [facility] which is a special hospital for this surgery. I am hopeful we could bring her to [facility] on this Saturday08/22/2018 to perform the sophisticated surgery on that left proximal tibia fracture and remove the external fixator. Right now the pins are dried and the dressing done, which needs less for dressing, it is not draining at the four pin sites. I will put a trapeze on bed of the patient, so the patient could get up out of bed upper torso so she could get out of bed. We will follow her closely here and then at the [facility] on Saturday morning. Merrill Becker DO
[2018-08-18] MEDS: POLYETHYLENE GLYCOL 3350 17 GM/Dose PACKET PO PRN (18:39)
[2018-08-19] MEDS: HYDROmorphone 1 mg/ml ISec IVP PRN ×5 (04:10→21:42)
[2018-08-19] MEDS: Pantoprazole 40 mg EC Tab PO SCH (05:25)
[2018-08-19] MEDS: Cefpodoxime (Vantin) 200 mg Tab PO SCH ×2 (09:15→21:42)
[2018-08-19] MEDS: Nystatin 100,000 Units/gm Topical Pow(15 gm) TOP SCH ×2 (09:17→17:41)
--- NOTE | 2018-08-19 12:45 | PN ---
DATE: 08/19/2018 SUBJECTIVE: A 53-year-old female in room 566, bed 3. The patient is getting ready for major open reduction internal fixation of a highly complex left tibial plateau fracture and proximal tibia fracture. The swelling is subsiding. She does have collection of hematoma anteriorly, but the integrity of the skin looks good. We planned to do a medial and lateral approach of the left knee to put plates and screws on the medial side and the lateral side and to preserve the integrity of the skin bridge that is in between the 2 incisions. we need a specialty care hospital like [facility] because we will probably have to consult with a plastic surgeon because of skin necrosis. She will need a muscle flap that to my recollection could only done at a medical center because it has never been done here for a muscle flap and then she needs tremendous care and overseen by orthopedic residence and training because I cannot solely be responsible [facility] [place] as many more specialists at [facility] for this complex fracture. So, I appreciate if we can send her on , get her there a day before surgery and plan for the surgery on Saturday and we will have to contact the plastic surgeon as well to provide for assistance if there are any complications with the skin healing because this is a major fracture. She is understanding of this and is willing to go to [facility] this , 08/22/2018, and we will work on getting an ambulance for transfer for this highly comminuted complex fracture, it is going to require extensive surgery by a team of doctors at [facility]. Merrill Becker DO
--- NOTE | 2018-08-19 14:09 | PN ---
DATE: 08/18/2018 DAILY PROGRESS NOTE SUBJECTIVE: The patient is a 53-year-old female who was admitted to the [facility] on 08/13 after falling down the stairs suffering a fracture of the proximal fibula and tibial plateau. She was seen by Dr. Becker, taken to the OR, and external stabilizers were placed. We are awaiting for the swelling and dementia decreased. The initial plan was to have the patient transferred to [facility] for 1 week and afterwards be taken to [facility] for the second phase of surgery on her fractured left lower extremity. There were some problems with the insurance, however, and the patient was not satisfied with the place that was scheduled for transfer; therefore, social workers, telephonic case manager are looking into further transfer to [facility] where there would be better continuity of care from her orthopedist, Dr. Becker until phase 2 of surgery. When seen, the patient is awake, alert and oriented. She is feeling well. There were some problems with urinary retention after the Zee catheter was discontinued; therefore, it was ordered to be reinserted. She was complaining of some smiled reflux and was started on Protonix 40 mg. We are continuing to follow the patient closely. Merrill Donis MD MTDD
[2018-08-19] MEDS: POLYETHYLENE GLYCOL 3350 17 GM/Dose PACKET PO PRN (21:56)
--- NOTE | 2018-08-19 22:06 | PN ---
DATE: 08/19/2018 SUBJECTIVE: The patient was seen this Saturday at noon time in room 566, bed 1. She is in bed, comfortable, awake, alert and clear. Mental status is sharp. She is in good spirits. PHYSICAL EXAMINATION: EXTREMITIES: Significant for impressive hardware in the left leg with two large stabilizing devices through the femur from two through the proximal mid tibia with number of stabilizing bars in between. The patient understands. PLAN: Our plan is for her to be transferred tomorrow for surgery on Saturday at [facility] for tertiary level orthopedic intervention. She is medically stable and optimized for OR with no contraindications and average risk. Jacobo Donis MD MTDD
[2018-08-20] MEDS: HYDROmorphone 1 mg/ml ISec IVP PRN ×5 (02:07→20:31)
[2018-08-20] MEDS: Pantoprazole 40 mg EC Tab PO SCH (06:03)
[2018-08-20] MEDS: Cefpodoxime (Vantin) 200 mg Tab PO SCH ×3 (11:02→21:06)
[2018-08-20] MEDS: Nystatin 100,000 Units/gm Topical Pow(15 gm) TOP SCH ×2 (11:15→18:09)
--- NOTE | 2018-08-20 13:44 | PN ---
DATE: 08/20/2018 LOCATION: A 53-year-old female in room 566, bed 3. The patient underwent transarticular external fixation of her left knee for highly comminuted displaced tibial plateau fracture and proximal tibial fracture on 08/13/2018. We are working on getting her to [facility] for former ORIF by an orthopedic hospital staff due to open reduction and internal fixation of the left proximal tibia and tibial plateau and to have availability of an aggressive plastic surgery program if the skin does not approximate after the surgical procedure. They would have to do a muscle flap or some other procedure, so that it will be readily available to handle complications from a highly sophisticated surgery of her left proximal tibia fracture and that would be best done at [facility] because they have a trained orthopedics staff that will extend possible benefits that is available over there beside I am the only one at [place], but there is a team of doctors that are ready to do this kind of the procedure and handle the complications of other issues, skin or neurovascular. Merrill Becker DO
[2018-08-20 17:02] VITALS: PULSE 84
[2018-08-20 21:05] VITALS: BP 126/73; RESP 18; TEMP 99.4; O2SAT 95
== END 2018-08-20 21:10 | disposition short-term general hospital (02) | DRG 494 ==
LOC: ED 21:41 → ERH 08-13 01:05 → 5RNO 08-13 02:35
PROVIDERS: ADMIT Internal Medicine; ATTEND Internal Medicine
PROC: 3E0234Z Introduction of Serum, Toxoid and Vaccine into Muscle, Percutaneous Approach (ICD-10-PCS; 2018-08-12)
PROC: 0QSH35Z Reposition Left Tibia with External Fixation Device, Percutaneous Approach (ICD-10-PCS; principal; 2018-08-13 11:00)
DX: S82.142A Displaced bicondylar fracture of left tibia, initial encounter for closed fracture (principal); S82.452A Displaced comminuted fracture of shaft of left fibula, initial encounter for closed fracture; S01.01XA Laceration without foreign body of scalp, initial encounter; I10 Essential (primary) hypertension; F10.129 Alcohol abuse with intoxication, unspecified; Y90.7 Blood alcohol level of 200-239 mg/100 ml; M47.814 Spondylosis without myelopathy or radiculopathy, thoracic region; M47.816 Spondylosis without myelopathy or radiculopathy, lumbar region; K21.9 Gastro-esophageal reflux disease without esophagitis; N32.89 Other specified disorders of bladder; M40.204 Unspecified kyphosis, thoracic region; W10.8XXA Fall (on) (from) other stairs and steps, initial encounter; Y92.009 Unspecified place in unspecified non-institutional (private) residence as the place of occurrence of the external cause; Z87.891 Personal history of nicotine dependence; Z23 Encounter for immunization

== ENCOUNTER 2018-10-21 10:44 | Outpatient (CLI) | payer BC | END 2018-10-21 10:45 | disposition home or self-care (01) | LOC: RAD 10:44 ==